=== PATIENT | male | born 1995 | race Caucasian/White ===

== ENCOUNTER 2017-05-31 18:17 | Emergency (ER) | payer OTHER ==
[~2017-05-31] VITALS: Ht 180.3 cm; Wt 83.7 kg
[2017-05-31 18:19] VITALS: BP 142/88
[2017-05-31] MEDS ORDERED: ATARAX,VISTARIL25 MG PO (18:42)
== END 2017-05-31 19:46 | disposition home or self-care (01) ==
LOC: EME 18:17
DX: F41.9 Anxiety disorder, unspecified (principal); I10 Essential (primary) hypertension; F17.200 Nicotine dependence, unspecified, uncomplicated
CPT/HCPCS: 93005; 99281; 99284; Q0177

== ENCOUNTER 2017-07-22 00:58 | Emergency (ER) | payer SELFPAY ==
[~2017-07-22] VITALS: Ht 182.9 cm; Wt 89.2 kg
[~2017-07-22 00:58] MED LIST: ATARAX,VISTARIL25 MG PO
[2017-07-22 01:57] VITALS: BP 134/94
== END 2017-07-22 01:57 | disposition left against medical advice (07) ==
LOC: EME 00:58
DX: R06.89 Other abnormalities of breathing (principal); Z53.21 Procedure and treatment not carried out due to patient leaving prior to being seen by health care provider
CPT/HCPCS: 99281; 99283

== ENCOUNTER 2017-08-23 01:29 | Emergency (ER) | payer OTHER ==
[~2017-08-23] VITALS: Ht 182.9 cm; Wt 92.4 kg
[2017-08-23 02:01] LABS: BASOPHIL (%) 0.5 % (0-1); EOSINOPHIL (%) 1.8 % (0-5); EOSINOPHIL COUNT 0.2 K/uL (0-0.3); HEMATOCRIT 41.4 % (38.0-50.0); HEMOGLOBIN 14.5 G/DL (12.5-16.6); IMMATURE GRANULOCYTE (%) 0.2 % (0.0-0.7); LYMPHOCYTE (%) 34.8 % (15-42); LYMPHOCYTE COUNT 3.1 K/uL (1.0-2.8); MCH 30.3 PG (29.0-34.0); MCV 86.6 FL (86-99); MONOCYTE COUNT 0.7 K/uL (0-0.8); NEUTROPHIL (%) 54.7 % (45-76); NEUTROPHIL COUNT 4.9 K/uL (1.8-6.4); PLATELET COUNT 316 K/uL (156-360); RBC DIS.WIDTH-CV 12.5 % (11.8-14.6); RBC DIS.WIDTH-SD 39.9 % (39-53); RED BLOOD COUNT 4.78 M/uL (4.00-5.50); WHITE BLOOD COUNT 8.9 K/uL (4.1-10.2)
[2017-08-23 02:15] LABS: ALBUMIN 4.4 g/dL (3.2-4.8); CHLORIDE 103 mEq/L (99-109); POTASSIUM 3.1 mEq/L (3.7-5.4)
[2017-08-23 02:16] LABS: SODIUM 139 mEq/L (136-147)
[2017-08-23 02:18] LABS: GLUCOSE 150 mg/dL (70-99); TOTAL PROTEIN 7.4 g/dL (6.4-8.3)
[2017-08-23 02:21] LABS: ALKALINE PHOSPHATASE 69 IU/L (3-129)
[2017-08-23 02:22] LABS: GFR ESTIMATE (CALCULATED) > 59 mL/min/ (58.99-99999)
[2017-08-23 02:23] LABS: AST (GOT) 33 IU/L (2-34); DIRECT BILIRUBIN 0.3 mg/dL (0.0-0.3); UREA NITROGEN (BUN) 17 mg/dL (9-23)
[2017-08-23 02:24] LABS: ALT (GPT) 61 IU/L (3-49)
[2017-08-23 02:25] LABS: LIPASE 14 U/L (1.0-51.0); TROP-I INTERPRETATION NEGATIVE; TROPONIN-I < 0.01 ng/mL (0.0-0.30)
[2017-08-23 02:54] LABS: D-DIMER ELISA < 150.00 ng/mLDDU (<230)
[2017-08-23] MEDS ORDERED: ZOFRAN4 MG PO (04:06)
[2017-08-23 04:35] VITALS: BP 131/63
== END 2017-08-23 04:37 | disposition home or self-care (01) ==
LOC: EME 01:29
PROVIDERS: Emergency Medicine
DX: R00.2 Palpitations (principal); F12.988 Cannabis use, unspecified with other cannabis-induced disorder; R11.2 Nausea with vomiting, unspecified; F17.200 Nicotine dependence, unspecified, uncomplicated
CPT/HCPCS: 71046; 80048; 80076; 83690; 84484; 85025; 85379; 93005; 99281; 99285; J1630; J2405; J7030